=== PATIENT | female | born 1995 | race Hispanic/Latino ===

== ENCOUNTER 2018-07-04 20:36 | Emergency (ER) | payer OTHER ==
[2018-07-04 22:05] VITALS: BP 118/61
--- NOTE | 2018-07-04 22:08 | Emergency Department Report ---
Blank Doc - Documentation Documentation: This is a 22-year-old female that presents with nausea and vomiting. Stated is 9 weeks . Denies any abdominal pain or vaginal bleeding. This initial assessment diagnostic orders/clinical plan/treatment(s) is/are subject to change based on patient's health status, clinical progression and re- assessment by fellow clinical providers in the ED. Further treatment and workup at subsequent clinical providers discretion. Patient/guardians urged not to elope from ED s their condition may be serious if not clinically assessed and managed. Initial orders include: 1-Patient sent to [facility] for further evaluation and treatment 2- Labs 3- UA
[2018-07-04 23:01] LABS: Basophils # (Auto) 0.1 K/mm3 (0.0-0.1); Basophils % (Auto) 0.5 % (0.0-1.8); Eosinophils % (Auto) 0.2 % (0.0-4.3); Hematocrit 43.1 % (30.3-42.9); Hemoglobin 14.7 gm/dl (10.1-14.3); Lymphocytes # (Auto) 1.6 K/mm3 (1.2-5.4); Lymphocytes % (Auto) 10.4 % (13.4-35.0); Mean Corpuscular HGB Conc 34 % (30-34); Mean Corpuscular Volume 87 fl (79-97); Monocytes # (Auto) 0.7 K/mm3 (0.0-0.8); Monocytes % (Auto) 4.6 % (0.0-7.3); Platelet Count 277 K/mm3 (140-440); Red Blood Count 4.96 M/mm3 (3.65-5.03); Red Cell Distribution Width 13.1 % (13.2-15.2)
[2018-07-04 23:20] LABS: BUN/Creatinine Ratio 20; Blood Urea Nitrogen 10 mg/dL (7-17); Calcium 9.1 mg/dL (8.4-10.2); Hemolysis Index 5
[2018-07-04 23:39] LABS: Bilirubin,Urine NEG (Negative); Blood,Urine NEG (Negative); Color,Urine Amber (Yellow); Mucus,Urine 3+ /HPF
[2018-07-05] MEDS ORDERED: ZOFRAN ODT PO ONE (00:42)
[2018-07-05] MEDS ORDERED: ZOFRAN ODT ONE (00:42)
[2018-07-05] MEDS ORDERED: ZOFRAN ONE (01:37)
[2018-07-05] MEDS ORDERED: ZOFRAN IM ONE (01:37)
[2018-07-05] MEDS ORDERED: NACL 0.9% 1000 ML 1,000 ML IV ONE (02:25)
--- NOTE | 2018-07-05 02:57 | Emergency Department Report ---
Vomiting/Diarrhea - HPI Chief Complaint: Nausea/Vomiting/Diarrhea Stated Complaint: EMESIS//9WKS Time Seen by Provider: 07/04/18 22:06 Duration: Today Severity: moderate Nausea/Vomiting Severity: Moderate Diarrhea Severity: None Pain Severity: None Symptoms: No Fever, No Able to Tolerate Fluids, No Recent Unusual Foods, No Recent Untreated Water, No Recent use of Antibiotics, No Family w/ Similar Symptoms, No Contacts w/ Similar Symptoms, No Rash, No Hematuria, No Recent URI Symptoms Other History: 22-year-old female presents to the emergency room for nausea and vomiting since 6 PM yesterday. Patient denies any pain she reports is unable to keep anything down. Patient is 9 weeks . She is followed by Dr. Mcbride at at bedtime for you. Patient reports she is taking her vitamins but did not take yesterday as she was vomiting. Patient reports no past medical history but has a surgical history of a cholecystectomy and D&C. Patient only has an allergy to adhesive tape. Patient denies any urinary urgency or dysuria or frequency. ED Review of Systems ROS: Stated complaint: EMESIS//9WKS Other details as noted in HPI Comment: All other systems reviewed and negative Constitutional: denies: chills, fever Gastrointestinal: nausea, vomiting. denies: abdominal pain Neurological: denies: headache ED Past Medical Hx - Past Medical History Previous Medical History?: No - Surgical History Past Surgical History?: Yes Hx Appendectomy: Yes Additional Surgical History: d&c - Social History Smoking Status: Never Smoker Substance Use Type: None - Medications Home Medications: Home Medications Medication Instructions Recorded Confirmed Last Taken Type Doxylamine Succinate [Sleep Aid] 25 mg PO BID PRN #20 tablet 07/05/18 Unknown Rx Roopa Root [Roopa] 250 mg PO QID PRN #45 capsule 07/05/18 Unknown Rx Pyridoxine [Vitamin B-6 50MG TAB] 50 mg PO DAILY PRN #30 tab 07/05/18 Unknown Rx Vomiting Diarrhea Exam - Exam General: Vital signs noted. No distress. Alert and acting appropriately. HEENT: Yes Moist Mucous Membranes, No Pharyngeal Erythema, No Pharyngeal Exudates, No Rhinorrhea, No Conjuctival Injection, No Frontal Tenderness, No Maxillary Tenderness Neck: No Adenopathy, No Rigidity Lungs: Yes Clear Lung Sounds, Yes Good Air Exchange, No Wheezes, No Stridor Heart exam: Regular: Yes, Murmur: No, Tachycardia: No Abdomen: Tenderness: No, Peritoneal Signs: No, Distention: No, Hyperactive Bowel sounds: No Skin exam: Rash: No, Edema: No, Normal turgor: Yes Neurologic: Alert and oriented, no deficits. Musculoskeletal: Unremarkable. ED Course Vital Signs 07/04/18 22:03 Temperature 98.2 F Pulse Rate 78 Respiratory 18 Rate Blood Pressure 118/61 O2 Sat by Pulse 100 Oximetry ED Medical Decision Making - Lab Data Result diagrams: 07/04/18 22:50 07/04/18 22:50 - Medical Decision Making Patient has been evaluated by this provider in [facility]. Patient has had 2 rounds of Zofran. Urinalysis shows the patient has urine protein of 100 urine ketones of 80 urine WBC of 9.0. The sales of 33 sprays urinary leukoesterase. Patient has been ordered an IV of normal saline for dehydration. Patient will be reevaluated after her first liter. Critical care attestation.: If time is entered above; I have spent that time in minutes in the direct care of this critically ill patient, excluding procedure time. ED Disposition Clinical Impression: Hyperemesis gravidarum Disposition: DC-01 TO HOME OR SELFCARE Is pt being admited?: No Does the pt Need Aspirin: No Condition: Stable Instructions: Hyperemesis Gravidarum (ED) Additional Instructions: Please take antinausea medication as prescribed. Please increase her water intake and advance her diet as tolerated. Please follow up with her OB provider. Prescriptions: Doxylamine Succinate [Sleep Aid] 25 mg PO BID PRN #20 tablet PRN Reason: Nausea And Vomiting Roopa Root [Roopa] 250 mg PO QID PRN #45 capsule PRN Reason: Nausea And Vomiting Pyridoxine [Vitamin B-6 50MG TAB] 50 mg PO DAILY PRN #30 tab PRN Reason: Nausea And Vomiting Referrals: [facility] [Provider Group] - 3-5 Days Forms: Work/School Release Form(ED)
[2018-07-05] MEDS ORDERED: ZOFRAN IV ONE (04:09)
== END 2018-07-05 04:30 | disposition home or self-care (01) ==
LOC: ED 20:36
DX: O26.891 Other specified pregnancy related conditions, first trimester (principal); O21.0 Mild hyperemesis gravidarum; Z3A.09 9 weeks gestation of pregnancy; Z91.09 Other allergy status, other than to drugs and biological substances
CPT/HCPCS: 36415; 80048; 81001; 85025; 96361; 96372; 96374; 99283; J2405; J7030; Q0162